=== PATIENT | female | born 1960 | race Caucasian/White ===

== ENCOUNTER → 2016-05-09 | Outpatient (CLI) | payer BC ==
[2016-05-09 13:33] LABS: BASO % 0.3 %; BASO ABS # 0.02 K/uL (0-0.2); COMPLETE YES; HEMATOCRIT 42.6 % (37-47); IG% 0.3 %; LYMPH % 16.4 %; MEAN CELL VOLUME 86.9 fL (80-100); MEAN CORPUSCULAR HEMOGLOBIN 29.2 pg (25-34); MEAN CORPUSCULAR HGB CONC 33.6 g/dl (32-36); MEAN PLATELET VOLUME 9.7 fL (7.4-10.4); MONO % 5.7 %; NEUT % 77.3 %; PLATELET COUNT 229 K/uL (130-400)
[2016-05-09 13:49] LABS: ALT/SGPT 18 U/L (12-78); BLOOD UREA NITROGEN 16 mg/dl (7-18); BUN/CREATININE RATIO 13.1 (10-20); CALCIUM 9.1 mg/dl (8.5-10.1); CARBON DIOXIDE 31 mmol/L (21-32); CHLORIDE 104 mmol/L (98-107); CHOLESTEROL 148 mg/dl (0-200); GLUCOSE 86 mg/dl (70-99); POTASSIUM 4.2 mmol/L (3.5-5.1); SODIUM 141 mmol/L (136-145); TRIGLYCERIDES 243 mg/dl (0-150); VERY LOW DENSITY LIPOPROT CALC 49 mg/dl
[2016-05-09 13:58] LABS: ALB/GLOB RATIO 1.1 (0.9-2); ALKALINE PHOSPHATASE 100 U/L (45-117); AST/SGOT 15 U/L (15-37); CHOLESTEROL/HDL RATIO 3.4; HDL CHOLESTEROL 43 mg/dl; LDL CHOLESTEROL CALCULATED 56 mg/dl
== END | disposition home or self-care (01) ==
LOC: C.LABMFLN 10:22
PROVIDERS: ATTEND Family Medicine
DX: I10 Essential (primary) hypertension (principal); E78.00 Pure hypercholesterolemia, unspecified; E03.9 Hypothyroidism, unspecified

== ENCOUNTER → 2016-08-12 | Outpatient (CLI) | payer BC ==
[2016-08-12 13:52] LABS: CHOLESTEROL/HDL RATIO 2.7; THYROID STIMULATING HORMONE 0.638 uIu/ml (0.300-4.500)
== END | disposition home or self-care (01) ==
LOC: C.LABMFLN 08:52
PROVIDERS: ATTEND Family Medicine
DX: E78.00 Pure hypercholesterolemia, unspecified (principal); E03.9 Hypothyroidism, unspecified

== ENCOUNTER → 2017-02-25 | Outpatient (CLI) | payer BC ==
[2017-02-25 17:45] LABS: URINE APPEARANCE CLEAR (CLEAR); URINE BILIRUBIN NEG (NEG); URINE COLOR YELLOW; URINE NITRITE NEG (NEG); URINE SPECIFIC GRAVITY 1.013 (1.000-1.030); UROBILINOGEN NEG (NEG)
[2017-02-25 17:46] LABS: MANUAL MICROSCOPIC REQUIRED? NO; REVIEW REQ? NO
[2017-02-25 17:50] LABS: BASO % 0.4 %; BASO ABS # 0.02 K/uL (0-0.2); COMPLETE YES; EOS % 0.2 %; HEMATOCRIT 42.1 % (37-47); IG% 0.2 %; LYMPH % 15.1 %; LYMPH ABS # 0.84 K/uL (1.2-3.4); MEAN CELL VOLUME 88.4 fL (80-100); MEAN CORPUSCULAR HEMOGLOBIN 29.6 pg (25-34); MEAN CORPUSCULAR HGB CONC 33.5 g/dl (32-36); MEAN PLATELET VOLUME 9.7 fL (7.4-10.4); MONO % 8.6 %; NEUT % 75.5 %; PLATELET COUNT 204 K/uL (130-400); RED BLOOD COUNT 4.76 M/uL (4.2-5.4); WHITE BLOOD COUNT 5.55 K/uL (4.8-10.8)
[2017-02-25 18:03] LABS: ALT/SGPT 24 U/L (12-78); AST/SGOT 18 U/L (15-37); BLOOD UREA NITROGEN 15 mg/dl (7-18); BUN/CREATININE RATIO 13.7 (10-20); CALCIUM 8.5 mg/dl (8.5-10.1); CARBON DIOXIDE 29 mmol/L (21-32); CHLORIDE 106 mmol/L (98-107); CREATININE 1.09 mg/dl (0.60-1.20); GLUCOSE 88 mg/dl (70-99); POTASSIUM 3.8 mmol/L (3.5-5.1); SODIUM 142 mmol/L (136-145)
[2017-02-25 18:15] LABS: ALB/GLOB RATIO 0.9 (0.9-2); ALKALINE PHOSPHATASE 110 U/L (45-117); CHOLESTEROL 102 mg/dl (0-200); CHOLESTEROL/HDL RATIO 2.2; HDL CHOLESTEROL 47 mg/dl; LDL CHOLESTEROL CALCULATED 25 mg/dl; THYROID STIMULATING HORMONE 0.478 uIu/ml (0.300-4.500); TRIGLYCERIDES 152 mg/dl (0-150); VERY LOW DENSITY LIPOPROT CALC 30 mg/dl
== END | disposition home or self-care (01) ==
LOC: C.LABMFLN 11:57
PROVIDERS: ATTEND Family Medicine
DX: J44.9 Chronic obstructive pulmonary disease, unspecified (principal); I10 Essential (primary) hypertension; E03.9 Hypothyroidism, unspecified; E78.00 Pure hypercholesterolemia, unspecified

== ENCOUNTER 2020-11-13 08:12 | Observation (INO) ==
--- NOTE | 2020-10-27 15:32 | PAT Medication Instructions ---
Medication Instructions Date of Service October 27, 2020 Home Medications Medication Instructions Recorded albuterol sulfate 2.5 mg CONTINUOUS NEBULIZATION Q4H 11/03/18 PRN #75 ml atorvastatin 20 mg tablet 20 mg PO HS #90 tab 05/16/20 bupropion HCl 100 mg tablet 100 mg PO BID #180 tab 09/07/20 albuterol sulfate 2.5 mg CONTINUOUS NEBULIZATION Q4H PRN atorvastatin 20 mg tablet 20 mg PO HS bupropion HCl 100 mg tablet 100 mg PO BID acetaminophen 500 mg capsule 1,000 mg PO Q6H PRN albuterol sulfate 90 mcg/actuation aerosol inhaler (ProAir HFA) 2 puff INHALATION 6XD PRN atenolol 50 mg tablet 50 mg PO QAM ibuprofen 200 mg capsule 400 mg PO Q6H PRN levothyroxine 200 mcg tablet 200 mcg PO QAM losartan 25 mg tablet 25 mg PO QAM mometasone-formoterol HFA 100 mcg-5 mcg/actuation aerosol inhaler 2 puff INHALATION QAM omeprazole 40 mg capsule,delayed release 40 mg PO BID tiotropium bromide 18 mcg capsule with inhalation device 1 cap INHALATION QAM ASK your surgeon for instructions ibuprofen 200 mg capsule 400 mg PO Q6H PRN DO NOT take the morning of surgery losartan 25 mg tablet 25 mg PO QAM Take morning of surgery With a small sip of water, OTHERWISE NOTHING TO EAT OR DRINK AFTER MIDNIGHT: albuterol sulfate 2.5 mg CONTINUOUS NEBULIZATION Q4H PRN (if needed) bupropion HCl 100 mg tablet 100 mg PO BID acetaminophen 500 mg capsule 1,000 mg PO Q6H PRN (okay to take up to 4 hours prior to surgery if needed) albuterol sulfate 90 mcg/actuation aerosol inhaler (ProAir HFA) 2 puff INHALATION 6XD PRN (if needed) atenolol 50 mg tablet 50 mg PO QAM levothyroxine 200 mcg tablet 200 mcg PO QAM mometasone-formoterol HFA 100 mcg-5 mcg/actuation aerosol inhaler 2 puff INHALATION QAM omeprazole 40 mg capsule,delayed release 40 mg PO BID tiotropium bromide 18 mcg capsule with inhalation device 1 cap INHALATION QAM Take evening before surgery albuterol sulfate 2.5 mg CONTINUOUS NEBULIZATION Q4H PRN (if needed) atorvastatin 20 mg tablet 20 mg PO HS bupropion HCl 100 mg tablet 100 mg PO BID acetaminophen 500 mg capsule 1,000 mg PO Q6H PRN (if needed) albuterol sulfate 90 mcg/actuation aerosol inhaler (ProAir HFA) 2 puff INHALATION 6XD PRN (if needed) omeprazole 40 mg capsule,delayed release 40 mg PO BID Other Notes If you have any questions please call us at [phone] or [phone] or [phone] or [phone]
--- NOTE | 2020-10-30 13:12 | Anesthesiology Consultation ---
Date of Service October 30, 2020 Assessment & Plan (1) Encounter for pre-operative examination: COVID screening: Per assessment on 10/30: Travel screen negative, no known COVID- 19 positive contacts or current COVID-19 related symptoms. Surgeon arranging preop COVID testing. Awaiting results. Chart Review Chart Review: Acceptable Risk for Surgery (pending surgeon-ordered PCP clearance) and Patient seen in Pre Admission Testing Teaching & Discussion Pre-Anesthesia Teaching/Discussion Notes: Instructed NPO after midnight before surgery,except medications with 15 cc of water. Medication instructions provided according to the PAT guidelines. History Surgery Operation Date: 11/13/20 12:25 Proposed Procedures p C4-C6 Anterior Cervical Discectomy and Fusion Possible C6-C7, Spinal Cord Monitoring - Khanh Shah DO Height/Weight Height: 5 ft 4 in Weight: 109.6 kg Allergies Allergy/AdvReac Type Severity Reaction Status Date / Time lisinopril Allergy Unknown Unknown Verified 10/26/20 15:36 oxytetracycline Allergy Unknown Hives Verified 10/26/20 15:36 [From Terramycin] Medications Home Medications Medication Instructions Recorded Confirmed Last Taken albuterol sulfate 2.5 mg CONTINUOUS NEBULIZATION Q4H 11/03/18 10/26/20 Unknown PRN #75 ml atorvastatin 20 mg tablet 20 mg PO HS #90 tab 05/16/20 10/26/20 Unknown bupropion HCl 100 mg tablet 100 mg PO BID #180 tab 09/07/20 10/26/20 Unknown acetaminophen 500 mg capsule 1,000 mg PO Q6H PRN 10/26/20 10/26/20 Unknown albuterol sulfate 90 mcg/actuation 2 puff INHALATION 6XD PRN 10/26/20 10/26/20 Unknown aerosol inhaler (ProAir HFA) atenolol 50 mg tablet 50 mg PO QAM 10/26/20 10/26/20 Unknown ibuprofen 200 mg capsule 400 mg PO Q6H PRN 10/26/20 10/26/20 Unknown levothyroxine 200 mcg tablet 200 mcg PO QAM 10/26/20 10/26/20 Unknown losartan 25 mg tablet 25 mg PO QAM 10/26/20 10/26/20 Unknown mometasone-formoterol HFA 100 2 puff INHALATION QAM 10/26/20 10/26/20 Unknown mcg-5 mcg/actuation aerosol inhaler omeprazole 40 mg capsule,delayed 40 mg PO BID 10/26/20 10/26/20 Unknown release tiotropium bromide 18 mcg capsule 1 cap INHALATION QAM 10/26/20 10/26/20 Unknown with inhalation device Past Medical History Medical History Acid reflux disease controlled Carpal tunnel syndrome Cervical spinal stenosis Chronic obstructive pulmonary disease CKD (chronic kidney disease), stage III PCP monitoring Depression Essential tremor Left hand History of IBS Hypercholesterolemia Hypertension Hypothyroidism Morbid obesity Venous insufficiency Exercise / Class Metabolic Activity III < 4 Walking/Shop/Light housework (one FS (no CP, mild SOB)) Past Family History Family History Grandmother Breast cancer Uncle Colorectal cancer Esophageal cancer Lung cancer Prostate cancer Father Heart disease Mother Skin cancer Brother Brain cancer Past Surgical History Surgical History H/O lymph node biopsy Neck (Dx cat scratch fever) History of bunionectomy History of esophagogastroduodenoscopy (EGD) S/P cholecystectomy S/P colonoscopy 08/24/20 ([facility]) S/P hysterectomy Past Anesthesia History No Hx of Anesthesia Complications (except PONV x1 (cholecystectomy)) and No Family Hx of Anesthesia Complications History of PONV No Hx of Motion Sickness and History of PONV (PONV x1 (cholecystectomy) STOP BANG Total 5 Social History Smoking Status: Never smoker Do You Dip or Chew Tobacco: No Hx Alcohol Use: No Hx Substance Use: No Review of Systems Chronic, intermittent dry cough, unchanged- felt r/t COPD. Patient denies chest pain, shortness of breath, fever, chills, wheezing, palpitations. Physical Exam Vital Signs VITALS BP 139/85 P 68 TEMP 98.6 SP02 94%RA RESP 16 PHYSICAL Significantly decreased cervical extension range of motion (r/t cervicalgia). Full TMJ range of motion. TMD 3 finger breaths Mallampati Score 2 Dentition: upper right front side tooth Lungs: clear throughout to auscultation Cardiac: regular rate and rhythm, no murmurs noted Spine: normal Carotid arteries: negative bruit Extremities: no edema Lab Results Anesthesia Preop Results Results Anesthesia Widget: WBC 7.43 K/uL (4.8-10.8) 10/30/20 Hgb 13.6 g/dL (12.0-16.0) 10/30/20 Hct 41.0 % (37-47) 10/30/20 Plt 247 K/uL (130-400) 10/30/20 Na 143 mmol/L (136-145) 10/30/20 K 4.2 mmol/L (3.5-5.1) 10/30/20 Cl 109 mmol/L (98-107) H 10/30/20 CO2 30 mmol/L (21-32) 10/30/20 BUN 15 mg/dl (7-18) 10/30/20 Creat 1.13 mg/dl (0.6-1.2) 10/30/20 Glucose Level 80 mg/dl (70-99) 10/30/20 PT 9.8 Seconds (9.0-12.0) 10/30/20 PTT 25.9 Seconds (21.0-31.0) 10/30/20 INR 1.0 (0.9-1.1) 10/30/20 Urine Color Yellow 10/30/20 Urine Appearance Clear (Clear) 10/30/20 Urine pH 5.0 (4.5-7.5) 10/30/20 Urine Specific [place] 1.010 (1.000-1.030) 10/30/20 Urine Protein Negative (Negative) 10/30/20 Urine Glucose (UA) Negative (Negative) 10/30/20 Urine Ketones Negative (Negative) 10/30/20 Urine Blood Negative (Negative) 10/30/20 Urine Nitrite Negative (Negative) 10/30/20 Urine Bilirubin Negative (Negative) 10/30/20 Urine Urobilinogen Negative (Negative) 10/30/20 Urine Leukocyte Esterase Negative (Negative) 10/30/20 Blood Type O Positive 10/30/20 Antibody Screen NEGATIVE 10/30/20 Testing Electrocardiogram Date: 10/30/20 NSR at 68bpm. unconfirmed report. Chest X-Ray Date: 10/30/20 No acute cardiopulmonary findings. Mild reticulonodular interstitial thickening. Although nonspecific, this is likely chronic.
[~2020-11-13 08:12] MED LIST: ACETAMINOPHEN 500 MG TAB PO SCH; CeleBREX 200 MG CAP PO SCH; GABAPENTIN 600 MG DOSE PO SCH; LR 15ML/HR IV SCH; ceFAZolin 2000MG 2,000 MG/15 ML SYR IV SCH
[2020-11-13] MEDS ORDERED: MEPERIDINE HCL 25 MG/ML CARP/VIAL IV PRN (09:35)
[2020-11-13] MEDS ORDERED: ONDANSETRON INJ 2 MG/ML 2 ML VIAL IV PRN ×2 (09:35→13:46)
[2020-11-13] MEDS ORDERED: ePHEDrine sulfate 50 MG/ML AMP IV PRN (09:35)
[2020-11-13] MEDS ORDERED: fentaNYL citrate 100 MCG/2 ML VIAL IV PRN (09:35)
[2020-11-13] MEDS ORDERED: LABETALOL HCL IV 5 MG/ML 20ML IV PRN (09:35)
[2020-11-13] MEDS ORDERED: HYDROmorphone INJ 1 MG/ML SYRINGE IV PRN ×2 (09:35→13:46)
[2020-11-13] MEDS ORDERED: PHENYLEPHRINE 100MCG/ML 5ML SYR IV PRN (09:35)
[2020-11-13] MEDS ORDERED: ATROPINE SULFATE 0.1 MG/ML 10ML SYR IV PRN (09:35)
--- NOTE | 2020-11-13 09:37 | History & Physical Bridge Note ---
Date of Service November 13, 2020 History & Physical Bridge Note I have examined the patient, reviewed the History & Physical and in the interval since the performance of the History & Physical I have noted the following changes of clinical significance: no changes noted
--- NOTE | 2020-11-13 09:38 | History & Physical Report ---
Date of Service November 13, 2020 Assessment & Plan (1) Cervical spinal stenosis: Plan: C4-C6 anterior cervical discectomy and fusion, possible C6-C7 History of Present Illness Chief Complaint: Neck and arm pain Primary Care Provider: Seema Juan MD This is a 52-year-old female presents with chronic persistent neck and arm pain after failing course of nonoperative care she is here for surgical invention. Allergies Allergy/AdvReac Type Severity Reaction Status Date / Time lisinopril Allergy Unknown Unknown Verified 11/13/20 08:50 oxytetracycline Allergy Unknown Hives Verified 11/13/20 08:50 [From Terramycin] Home Medications Medication Instructions Recorded Confirmed Type albuterol sulfate 2.5 mg CONTINUOUS NEBULIZATION Q4H 11/03/18 11/13/20 Rx PRN #75 ml atorvastatin 20 mg tablet 20 mg PO HS #90 tab 05/16/20 11/13/20 Rx bupropion HCl 100 mg tablet 100 mg PO BID #180 tab 09/07/20 11/13/20 Rx acetaminophen 500 mg capsule 1,000 mg PO Q6H PRN 10/26/20 11/13/20 History albuterol sulfate 90 mcg/actuation 2 puff INHALATION 6XD PRN 10/26/20 11/13/20 History aerosol inhaler (ProAir HFA) atenolol 50 mg tablet 50 mg PO QAM 10/26/20 11/13/20 History ibuprofen 200 mg capsule 400 mg PO Q6H PRN 10/26/20 11/13/20 History levothyroxine 200 mcg tablet 200 mcg PO QAM 10/26/20 11/13/20 History losartan 25 mg tablet 25 mg PO QAM 10/26/20 11/13/20 History mometasone-formoterol HFA 100 2 puff INHALATION QAM 10/26/20 11/13/20 History mcg-5 mcg/actuation aerosol inhaler omeprazole 40 mg capsule,delayed 40 mg PO BID 10/26/20 11/13/20 History release tiotropium bromide 18 mcg capsule 1 cap INHALATION QAM 10/26/20 11/13/20 History with inhalation device Past Med/Surg History Medical History Acid reflux disease controlled Carpal tunnel syndrome Cervical spinal stenosis Chronic obstructive pulmonary disease CKD (chronic kidney disease), stage III PCP monitoring Depression Essential tremor Left hand History of IBS Hypercholesterolemia Hypertension Hypothyroidism Morbid obesity Venous insufficiency Surgical History H/O lymph node biopsy Neck (Dx cat scratch fever) History of bunionectomy History of esophagogastroduodenoscopy (EGD) S/P cholecystectomy S/P colonoscopy 08/24/20 ([facility]) S/P hysterectomy Family History Grandmother Breast cancer Uncle Colorectal cancer Esophageal cancer Lung cancer Prostate cancer Father Heart disease Mother Skin cancer Brother Brain cancer Social History (Updated 10/26/20 @ 16:00 by Minnie Mckinley RN) Smoking Status: Never smoker Second Hand Exposure: Yes (SPOUSE SMOKES); Do You Dip or Chew Tobacco: No; Hx Alcohol Use: No Hx Substance Use: No Preferred Language: Azeri Communication Ability: Effective Overnight Associate Required: No Beliefs That Will Affect Care: None marital status: Current Living Situation: Spouse current occupational status: employed 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
[2020-11-13] MEDS ORDERED: MIDAZOLAM HCL 1 MG/ML 2ML VIAL ONE (09:47)
[2020-11-13] MEDS ORDERED: fentaNYL citrate 100 MCG/2 ML VIAL ONE ×3 (09:47→12:19)
[2020-11-13] MEDS ORDERED: PROPOFOL IV EMULSION 10 MG/ML 20 ML VIAL IV ONE (10:40)
[2020-11-13] MEDS ORDERED: ONDANSETRON INJ 2 MG/ML 2 ML VIAL ONE (10:40)
[2020-11-13] MEDS ORDERED: DEXAMETHASONE SOD INJ 4 MG/ML VIAL ONE (10:40)
[2020-11-13] MEDS ORDERED: LIDOCAINE 2% 2 ML VIAL/AMP(20MG/ML) INFIL ONE (10:40)
[2020-11-13] MEDS ORDERED: NEOSTIGMINE METHYLSULFATE 1 MG/ML 10ML VIAL ONE (10:41)
[2020-11-13] MEDS ORDERED: GLYCOPYRROLATE 0.2 MG/ML VIAL ONE (10:41)
[2020-11-13] MEDS ORDERED: FLOSEAL HEMOSTATIC MATRIX 10ML TOP ONE (10:41)
[2020-11-13] MEDS ORDERED: PHENYLEPHRINE 100MCG/ML 5ML SYR ONE (10:41)
[2020-11-13] MEDS ORDERED: ePHEDrine sulfate 50 MG/ML SYR ONE (10:41)
--- NOTE | 2020-11-13 11:52 | Operative Report ---
Post Operative Report Pre & Post Diagnosis Operation Date: 11/13/20 09:55 Pre-Op Diagnosis: Spinal Stenosis, Cervical Region Post-Op Diagnosis: Spinal Stenosis, Cervical Region I identified the patient and participated in the time-out.: Yes Procedure Operation Date: 11/13/20 09:55 Actual Procedures #1 anterior cervical discectomy with bilateral foraminotomies C4-5, C5-6 and C6- C7. #2 anterior cervical arthrodesis C4-5, C5-6 and C6-C7. #3 placement of 7 mm spiral cage filled with I factor at C4-C5, 8 mm at C5-C6 and 8 mm at C6 and C7. Again all filled with I factor. #4 application 5 complete and screws from C4-C7. Surgeon Khanh Shah, DO Tower Crane Operator Jessie Reid Estimated Blood Loss 20 Findings See Below The patient is 5 foot 4 weighing over 107 kg with a BMI in excess of 40. Patient body habitus did contribute to significant technical difficulty with patient positioning and exposure adding at least 25% increase to the operative time. Specimens None Indications This is a 60-year-old female presents with above-mentioned diagnosis after failing course of nonoperative care she is here for surgical invention. Description of Procedure Patient was met with identified informed consent obtained. Patient was then taken to the operative suite underwent a patient placed in supine position Santos table the head Elder head mixer. All bony prominences well-padded eyes inspected to ensure no external pressure placed upon the. This point the anterior cervical spine was prepped and draped in a sterile fashion. With the assistance of fluoroscopy and the plan to see 5 C6 disc base and a transverse incision was placed along the right anterior aspect of the cervical spinal lines region. Sharp dissection with assistance of bipolar cautery performed down to and exposing the anterior cervical spine from C4-C7. Several 10 retractors p laced. Then performed a complete discectomy of C4-C5 out to the uncovertebral's bilaterally. [place] distracting pins utilized to assist in visualization. Removed all posterior annular fibers longitudinal ligament and bilateral foraminotomies performed. Endplates were then burred to subcortically bone and a 7 mm spiral cage filled I factor tapped in position. Then proceeded to C5-C6. Again complete discectomy performed out to the uncovertebral's bilaterally. Removed all posterior annular fibers longitudinal ligament bilateral foraminotomies performed. Endplates burred to subcortically bone and an 8 mm spiral cage filled I factor tapped in position. Lastly proceeded to C6-C7. Again complete discectomy performed out to the uncovertebral's bilaterally. Including removal of all posterior fibers longitudinal ligament bilateral foraminotomies performed. Endplates burred to subcortically bone and an 8 mm spiral cage filled with I factor tapped in position. Distracting apparatus was removed all anterior osteophytes burred to a smooth cortical surface of 5 complete and screws applied with the assistance of fluoroscopy. Incision was then copiously irrigated explored to ensure no damage to surrounding structures remaining bleeding. 10 round GERALD drain inserted. The incision was then closed with 2 Vicryl in a fashion of 4 Monocryl for final skin closure. Steri-Strip sterile dressings placed. Patient waken taken to PACU stable condition. Please note spinal cord monitoring was utilized at the procedure no changes noted. Lastly Jessie Reid was present at the entire procedure involved the patient positioning complex portions of the surgery and final skin closure. I attest to the content of the Intraoperative Record and any orders documented therein. Any exceptions are noted below.
--- NOTE | 2020-11-13 12:28 | Fluoroscopy Report ---
FL cervical 2-3V HISTORY: 60 years-old Female C4-6 ACDF POSSIBLE C6-7 COMPARISON: None TECHNIQUE: 3 spot fluoroscopic images of the cervical spine were obtained utilizing 19.7 seconds fluo roscopy time FINDINGS: Anterior plate and screw fusion hardware noted at what appears to be the C4-C7 levels with associated discectomy changes. Endotracheal tube is present. Radiopaque surgical sponge is noted within the ant erior operative bed. IMPRESSION: Fluoroscopic assistance as above. ACT 112: Negative or not required by law. The above report was generated using voice recognition software. It may contain grammatical, syntax o r spelling errors. Electronically signed by: Oswaldo Malik M.D. 11/13/2020 12:27 PM
--- NOTE | 2020-11-13 13:05 | Anesthesiology Progress Note ---
Date of Service November 13, 2020 Anesthesia Post Procedure Vital Signs Vital Signs: Temp Pulse Pulse Resp BP Pulse Ox 11/13/20 13:00 80 18 149/80 H 95 11/13/20 12:50 79 18 148/80 H 93 11/13/20 12:40 76 18 136/77 94 11/13/20 12:30 73 20 148/78 H 96 11/13/20 12:20 75 20 143/82 H 97 11/13/20 12:10 36.4 C L 79 17 137/79 94 11/13/20 08:55 36.9 C 78 20 143/71 H 97 Transfer of Care Handoff Completed per policy Notes Mental Status: alert / awake / arousable Patient Amnestic to Procedure: Yes Nausea / Vomiting: adequately controlled Pain: adequately controlled Airway Patency, RR, SpO2: stable & adequate BP & HR: stable & adequate Hydration State: stable & adequate Anesthetic Complications: no major complications apparent and Pt Satisfied with anesthetic care Notes: The patient is awake and comfortable. She has some neck soreness around the surgical site but there is no neck swelling and her dressing is clear. She was told to let her nurse know immediately if she has any neck swelling or trouble breathing on the floor.
[2020-11-13] MEDS ORDERED: LORazepam 0.5 MG/1 ML VIAL IV PRN (13:46)
[2020-11-13] MEDS ORDERED: dexAMETHasone 8 MG in SYRINGE 0 ML IV PRN (13:46)
[2020-11-13] MEDS ORDERED: DO NOT ADMINISTER FLU VACCINE PRN (13:46)
[2020-11-13] MEDS ORDERED: FAMOTIDINE 20 MG TAB PO PRN (13:46)
[2020-11-13] MEDS ORDERED: NALOXONE HCL 0.4 MG/1 ML VIAL/CARP IV PRN (13:46)
[2020-11-13] MEDS ORDERED: traMADol HCL 50 MG TABLET PO PRN (13:46)
[2020-11-13] MEDS ORDERED: diphenhydrAMINE Capsule 25 MG CAP PO PRN (13:46)
[2020-11-13] MEDS ORDERED: bisacodyL 10 MG SUPP PR PRN (13:46)
[2020-11-13] MEDS ORDERED: MAGNESIUM HYDROXIDE SUSP 30 ML UDC PO PRN (13:46)
[2020-11-13] MEDS ORDERED: ALBUTEROL HFA 8 GM INHALER INH PRN (13:46)
[2020-11-13] MEDS ORDERED: ALBUTEROL 0.083% NEBU SOLN 3 ML VIAL INH PRN (13:46)
[2020-11-13] MEDS ORDERED: SOD PHOSPHATE/SOD BIPHOSPHATE ENEMA 132 ML BTL PR PRN (13:46)
[2020-11-13] MEDS ORDERED: ACETAMINOPHEN 1,000 MG/100 ML VIAL IV PRN (13:46)
[2020-11-13] MEDS ORDERED: LORazepam 0.5 MG TAB PO PRN (13:46)
[2020-11-13] MEDS ORDERED: HYDROmorphone INJ 0.5 MG/0.5 ML SYR IV PRN (13:46)
[2020-11-13] MEDS ORDERED: oxyCODONE HCL IR 5 MG TAB (IMMEDIATE RELEASE) PO PRN (13:46)
[2020-11-13] MEDS ORDERED: ALUMINUM/MAGNESIUM SUSP 30 ML UDC PO PRN (13:46)
[2020-11-13] MEDS ORDERED: PROMETHAZINE HCL 12.5 MG in SODIUM CHLORIDE 0.9% 50 ML IV PRN (13:46)
[2020-11-13] MEDS ORDERED: DO NOT ADMINISTER PNEUMOCOCCAL VACCINE PRN (13:46)
[2020-11-13] MEDS ORDERED: RACEPINEPHRINE 2.25% NEBU SOLN 0.5 ML VIAL INH PRN (13:46)
[2020-11-13] MEDS ORDERED: ACETAMINOPHEN 500 MG TAB PO PRN (13:46)
[2020-11-13] MEDS ORDERED: ONDANSETRON 4 MG OD TAB PO PRN (13:46)
[2020-11-13] MEDS ORDERED: METOCLOPRAMIDE HCL INJ 5 MG/ML 2 ML VIAL IV PRN (13:46)
[2020-11-13] MEDS ORDERED: hydrOXYzine HCl 25 MG TAB PO PRN (13:46)
[2020-11-13] MEDS: LACTATED RINGER'S 1,000 ML IV SCH ×2 (15:15→21:13)
[2020-11-13] MEDS: buPROPion HCl 100 MG TABLET PO SCH (16:25)
--- NOTE | 2020-11-13 16:33 | Consultation ---
Date of Consultation November 13, 2020 History of Present Illness Attending Physician: Khanh Shah DO Allergies Allergy/AdvReac Type Severity Reaction Status Date / Time lisinopril Allergy Unknown Unknown Verified 11/13/20 08:50 oxytetracycline Allergy Unknown Hives Verified 11/13/20 08:50 [From Terramycin] Home Medications Medication Instructions Recorded Confirmed Type albuterol sulfate 2.5 mg CONTINUOUS NEBULIZATION Q4H 11/03/18 11/13/20 Rx PRN #75 ml atorvastatin 20 mg tablet 20 mg PO HS #90 tab 05/16/20 11/13/20 Rx bupropion HCl 100 mg tablet 100 mg PO BID #180 tab 09/07/20 11/13/20 Rx acetaminophen 500 mg capsule 1,000 mg PO Q6H PRN 10/26/20 11/13/20 History albuterol sulfate 90 mcg/actuation 2 puff INHALATION 6XD PRN 10/26/20 11/13/20 History aerosol inhaler (ProAir HFA) atenolol 50 mg tablet 50 mg PO QAM 10/26/20 11/13/20 History ibuprofen 200 mg capsule 400 mg PO Q6H PRN 10/26/20 11/13/20 History levothyroxine 200 mcg tablet 200 mcg PO QAM 10/26/20 11/13/20 History losartan 25 mg tablet 25 mg PO QAM 10/26/20 11/13/20 History mometasone-formoterol HFA 100 2 puff INHALATION QAM 10/26/20 11/13/20 History mcg-5 mcg/actuation aerosol inhaler omeprazole 40 mg capsule,delayed 40 mg PO BID 10/26/20 11/13/20 History release tiotropium bromide 18 mcg capsule 1 cap INHALATION QAM 10/26/20 11/13/20 History with inhalation device oxycodone 5 mg tablet 5 mg PO Q6H PRN #20 tab 11/13/20 Rx tramadol 50 mg tablet 50 mg PO Q6H PRN #20 tab 11/13/20 Rx Patient History Medical History Acid reflux disease controlled Carpal tunnel syndrome Cervical spinal stenosis Chronic obstructive pulmonary disease CKD (chronic kidney disease), stage III PCP monitoring Depression Essential tremor Left hand History of IBS Hypercholesterolemia Hypertension Hypothyroidism Morbid obesity Venous insufficiency Surgical History H/O lymph node biopsy Neck (Dx cat scratch fever) History of bunionectomy History of esophagogastroduodenoscopy (EGD) S/P cholecystectomy S/P colonoscopy 08/24/20 ([facility]) S/P hysterectomy Family History Grandmother Breast cancer Uncle Colorectal cancer Esophageal cancer Lung cancer Prostate cancer Father Heart disease Mother Skin cancer Brother Brain cancer Social History (Updated 10/26/20 @ 16:00 by Minnie Mckinley RN) Smoking Status: Never smoker Second Hand Exposure: Yes (SPOUSE SMOKES); Do You Dip or Chew Tobacco: No; Hx Alcohol Use: No Hx Substance Use: No Preferred Language: Italian Communication Ability: Effective Manager Environmental Services Required: No Beliefs That Will Affect Care: None marital status: Current Living Situation: Spouse current occupational status: employed 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 Other Information That Helps Us Care for You: No Feels Safe at Home: Yes Safety Concerns: Feels Safe At This Time Dental Care, Regularly: No Physical Activity Frequency: Does not Exercise Seatbelt Use: always Sunscreen Use: Yes Assistive Devices: Glasses Results & Data ([facility]) Vital Signs (Past 12 Hours) Vital Signs Temp Pulse Pulse Pulse Resp BP Pulse Ox 11/13/20 16:19 36.6 C 82 15 116/69 96 11/13/20 15:18 36.5 C 80 14 116/68 96 11/13/20 15:10 84 18 96 11/13/20 14:30 36.7 C 84 16 123/73 93 11/13/20 13:50 36.3 C L 73 16 116/71 94 11/13/20 13:15 36.5 C 73 18 132/84 95 11/13/20 13:00 80 18 149/80 H 95 11/13/20 12:50 79 18 148/80 H 93 11/13/20 12:40 76 18 136/77 94 11/13/20 12:30 73 20 148/78 H 96 11/13/20 12:20 36.7 C 75 78 15 139/77 93 11/13/20 12:10 36.4 C L 79 17 137/79 94 11/13/20 08:55 36.9 C 78 20 143/71 H 97 PG Care Time/CCT Total # of Minutes Spent Total Time Spent with Patient: Total time spent is greater than 50% in coordination of care (as documented) at patient's floor/unit and/or counseling patient: Coding
--- NOTE | 2020-11-13 16:38 | Hospitalist Consultation ---
Date of Consultation November 13, 2020 Assessment & Plan (1) Cervical spinal stenosis: Patient underwent anterior approach C4 7 discectomy and fusion by Dr. Shah (2) Hypertension: Patient is maintained on atenolol 50 losartan 25 (3) Depression: The patient's depression she typically takes bupropion 100 twice daily (4) Hypothyroidism: For patient's hypothyroidism she is on 20 mcg of levothyroxine we will check a TSH in the morning (5) Hypercholesterolemia: Atorvastatin is used as an outpatient to control her dyslipidemia (6) CKD (chronic kidney disease), stage III: Chronic kidney disease stage III is stable we will watch for change in med dosing requirements (7) Chronic obstructive pulmonary disease: Stable postoperatively substitution of fluticasone Vilanterol for her outpatient inhaler, continues Umeclidinium and as needed albuterol (8) Acid reflux disease: On omeprazole as an outpatient pharmacy substitution for Protonix History of Present Illness Attending Physician: Khanh Shah, History of Present Illness Medical management consultation for patient underwent a C4-7 anterior discectomy and fusion. Patient having radicular symptoms preoperatively. Patient has multiple medical problems including hypothyroidism, hypertension, COPD, depre ssion, chronic kidney disease stage III, GERD, dyslipidemia. Patient is without complaints she improvement in her radicular symptoms she is a drain in bandage in her right anterior neck and reportedly after my visit she got nauseated Allergies Allergy/AdvReac Type Severity Reaction Status Date / Time lisinopril Allergy Unknown Unknown Verified 11/13/20 08:50 oxytetracycline Allergy Unknown Hives Verified 11/13/20 08:50 [From Terramycin] Home Medications Medication Instructions Recorded Confirmed Type albuterol sulfate 2.5 mg CONTINUOUS NEBULIZATION Q4H 11/03/18 11/13/20 Rx PRN #75 ml atorvastatin 20 mg tablet 20 mg PO HS #90 tab 05/16/20 11/13/20 Rx bupropion HCl 100 mg tablet 100 mg PO BID #180 tab 09/07/20 11/13/20 Rx acetaminophen 500 mg capsule 1,000 mg PO Q6H PRN 10/26/20 11/13/20 History albuterol sulfate 90 mcg/actuation 2 puff INHALATION 6XD PRN 10/26/20 11/13/20 History aerosol inhaler (ProAir HFA) atenolol 50 mg tablet 50 mg PO QAM 10/26/20 11/13/20 History ibuprofen 200 mg capsule 400 mg PO Q6H PRN 10/26/20 11/13/20 History levothyroxine 200 mcg tablet 200 mcg PO QAM 10/26/20 11/13/20 History losartan 25 mg tablet 25 mg PO QAM 10/26/20 11/13/20 History mometasone-formoterol HFA 100 2 puff INHALATION QAM 10/26/20 11/13/20 History mcg-5 mcg/actuation aerosol inhaler omeprazole 40 mg capsule,delayed 40 mg PO BID 10/26/20 11/13/20 History release tiotropium bromide 18 mcg capsule 1 cap INHALATION QAM 10/26/20 11/13/20 History with inhalation device oxycodone 5 mg tablet 5 mg PO Q6H PRN #20 tab 11/13/20 Rx tramadol 50 mg tablet 50 mg PO Q6H PRN #20 tab 11/13/20 Rx Patient History Medical History Acid reflux disease controlled Carpal tunnel syndrome Cervical spinal stenosis Chronic obstructive pulmonary disease CKD (chronic kidney disease), stage III PCP monitoring Depression Essential tremor Left hand History of IBS Hypercholesterolemia Hypertension Hypothyroidism Morbid obesity Venous insufficiency Surgical History H/O lymph node biopsy Neck (Dx cat scratch fever) History of bunionectomy History of esophagogastroduodenoscopy (EGD) S/P cholecystectomy S/P colonoscopy 08/24/20 ([facility]) S/P hysterectomy Family History Grandmother Breast cancer Uncle Colorectal cancer Esophageal cancer Lung cancer Prostate cancer Father Heart disease Mother Skin cancer Brother Brain cancer Social History (Updated 10/26/20 @ 16:00 by Minnie Mckinley RN) Smoking Status: Never smoker Second Hand Exposure: Yes (SPOUSE SMOKES); Do You Dip or Chew Tobacco: No; Hx Alcohol Use: No Hx Substance Use: No Preferred Language: Angolan Communication Ability: Effective Afric[employer] Studies Professor Required: No Beliefs That Will Affect Care: None marital status: Current Living Situation: Spouse current occupational status: employed current occupation: [employer] Other Information That Helps Us Care for You: No Feels Safe at Home: Yes Safety Concerns: Feels Safe At This Time Dental Care, Regularly: No Physical Activity Frequency: Does not Exercise Seatbelt Use: always Sunscreen Use: Yes Assistive Devices: Glasses Review of Systems Review of Systems: Mild distress and fatigue no headache, no visual changes no speech or swallowing issues no hoarseness of voice no chest pain, pressure or palpitations no shortness of breath, cough or wheezes no abdominal pain, she became nauseated no dysuria, hematuria or frequency no focal joint pain or swelling no back pain, CVA tenderness or radicular pain no bruising, bleeding or rashes no focal signs of weakness or numbness or altered sensation no complaints of anxiety or depression.. Physical Exam Physical Exam: The patient appeared well nourished and normally developed. Vital signs as documented. Head exam is normocephalic atraumatic Neck is with bandaged and the drain to the right side of her trachea no fluctuant tissue mass or ecchymosis noted no hoarseness of voice Lungs are clear to auscultation, no focal loss of breath sounds, no stridor Cardiac exam, Rhythm is regular.. No murmurs, rubs or gallops. Abdominal exam reveals normal bowel sounds, soft non tender, no masses Extremities are nonedematous and both pedal pulses are present Neurologic exam is alert and oriented, no focal loss of strength or sensation Skin is without bruises or rashes Psychologically is without concerns for anxiety or depression Results & Data Results & Data ([facility]) Vital Signs (Past 12 Hours) Vital Signs Temp Pulse Pulse Pulse Resp BP Pulse Ox 11/13/20 16:19 97.9 F 82 15 116/69 96 11/13/20 15:18 97.7 F 80 14 116/68 96 11/13/20 15:10 84 18 96 11/13/20 14:30 98.1 F 84 16 123/73 93 11/13/20 13:50 97.3 F L 73 16 116/71 94 11/13/20 13:15 97.7 F 73 18 132/84 95 11/13/20 13:00 80 18 149/80 H 95 11/13/20 12:50 79 18 148/80 H 93 11/13/20 12:40 76 18 136/77 94 11/13/20 12:30 73 20 148/78 H 96 11/13/20 12:20 98.1 F 75 78 15 139/77 93 11/13/20 12:10 97.5 F L 79 17 137/79 94 11/13/20 08:55 98.4 F 78 20 143/71 H 97 PG Care Time/CCT Total # of Minutes Spent Total Time Spent with Patient: Total time spent is greater than 50% in coordination of care (as documented) at patient's floor/unit and/or counseling patient: Coding Level of Care Code 40773 Inpt Consult Level 3 Diagnoses Cervical spinal stenosis M48.02 Hypertension I10 Depression F32.9 Hypothyroidism E03.9 Hypercholesterolemia E78.00 CKD (chronic kidney disease), stage III N18.3 Chronic obstructive pulmonary disease J44.9 Acid reflux disease K21.9
[2020-11-13] MEDS: ceFAZolin 2000MG 2,000 MG/15 ML SYR IV SCH (18:13)
[2020-11-13] MEDS: PANTOprazole 40 MG TAB PO SCH (20:24)
[2020-11-13] MEDS ORDERED: ATORVASTATIN 20 MG TAB PO SCH (21:00)
[2020-11-13] MEDS ORDERED: DOCUSATE SODIUM/SENNA 50/8.6MG TAB PO SCH (21:00)
[2020-11-14] MEDS: ceFAZolin 2000MG 2,000 MG/15 ML SYR IV SCH (02:02)
[2020-11-14] MEDS: POLYETHYLENE (MIRALAX) 17 GM PACK PO SCH ×2 (04:13→11:17)
[2020-11-14] MEDS: LACTATED RINGER'S 1,000 ML IV SCH (04:21)
[2020-11-14] MEDS ORDERED: LEVOTHYROXINE SODIUM 200 MCG TABLET PO SCH (06:30)
--- NOTE | 2020-11-14 08:30 | Discharge Summary ---
Date of Service November 14, 2020 Admission HPI Per Admitting Provider This is a 52-year-old female presents with chronic persistent neck and arm pain after failing course of nonoperative care she is here for surgical invention. Principal Diagnosis Cervical spinal stenosis with radiculopathy Discharge Data Allergies Allergy/AdvReac Type Severity Reaction Status Date / Time lisinopril Allergy Unknown Unknown Verified 11/13/20 08:50 oxytetracycline Allergy Unknown Hives Verified 11/13/20 08:50 [From Terramycin] Consultations 11/13/20 14:32 Consult Hospitalist Routine Procedures Performed Operation Date: 11/13/20 09:55 Actual Procedures p C4-C7 Anterior Cervical Discectomy and Fusion, Spinal Cord Monitoring(Not Applicable) - Khanh Shah DO Ordered Studies 11/13/20 09:55 FL cervical 2-3V Routine Hospital Course (1) Cervical spinal stenosis: Patient went anterior cervical discectomy and fusion tolerated this well was taken to orthopedic for postop labor postop day 1 she was swallowing well no hoarseness. Excellent strength testing. GERALD drain decreasing probably. Subsequently discharged home. Discharge orders and instructions found the chart for further review. Total Time Total Time Spent Total Time Spent (In Minutes): 20 minutes Discharge Plan Discharge Items Patient Disposition: Home - Self-Care Reason For Visit: Spinal Stenosis, Cervical Region Discharge Diagnosis: Cervical spinal stenosis with radiculopathy Activity: As commented below Non-emergency contact: Primary Care Provider Call non-emergency contact if: you have any medication questions Follow-up/Referrals: Seema Juan MD [Primary Care Provider] - Diet: Regular Addtl Attending Provider Instructions: ACTIVITY RECOMMENDATIONS: SELF CARE INSTRUCTIONS AFTER CERVICAL FUSIONS 1. No smoking. Smoking drastically decreases the chance of a solid fusion. 2. No bending, lifting more than 5 pounds, or twisting (roll like a log when turning in bed). 3. You may shower 3 days after surgery. Thoroughly dry wound. Do not soak in the tub. 4. Cervical collar: Must be worn at all times including sleeping. You may remove the brace only to bath, eat and if you are sitting in a recliner. 5. Please walk as much as you can for exercise. Gradually increase the distance that you walk as your endurance increases. SPECIAL CARE INSTRUCTIONS: VERY IMPORTANT TO READ AND REVIEW A. Do not take any anti-inflammatory medications (i.e. Indocin, Advil, Aspirin, Naprosyn, Aleve, Motrin, etc.) as these may inhibit the chance of a solid fusion. Tylenol is okay to take. B. Your surgical incision has been closed with a cosmetic suture under the skin that will dissolve in about 6 weeks. In 14 days, you can use a pair of clean scissors and cut the suture that is left outside of the skin at the ends of your incision. C. Complications are uncommon, but please contact us if you have any signs or symptoms of: 1. wound infection (fever higher than 102.5 degrees F, redness, separation of wound, drainage, or increasing pain from the incision) 2. blood clots in legs (pain, swelling, redness and warmth in legs) 3. urinary tract infection (fever higher than 102.5 degrees, burning upon urination or increased frequency of urination) 4. nerve problems (inability to walk on your toes or heels, numbness, loss of bowel or bladder control) 5. any other symptoms that concern you. D. Please call the office at if you have any concerns or questions about your operation or recovery. MANAGING PAIN AFTER SPINAL SURGERY 1. Narcotic medication is intended for short-term use and will be provided for surgical pain. Surgical pain usually lasts for a period of 4-6 weeks. Narcotic medication includes Percocet, Vicodin, Darvocet, Tylenol #3 or Lortab. 2. Longer-term pain is more appropriately treated with non-narcotic medication such as Tylenol ES. 3. Muscle spasm is not appropriately treated with narcotics. Muscle relaxers such as Soma, Flexeril or Skelaxin can be used along with Tylenol ES. 4. Remember that we all live with some "aches and pains". This is not unusual or uncommon after an injury or as we get older. 5. We will provide appropriate medication within the normal guidelines of their prescribed use. We will also be very cautious and aware of potential abuse and extended duration of patients' medication needs. 6. Please allow 2-3 days to process refills. Prescriptions will not be mailed but must be picked up at the office. FOLLOW UP VISIT: Keep your scheduled follow-up appointment. Any questions, please call the office at . Pending Studies at Discharge: No Stand-Alone Forms: [facility], Smoking Cessation Medications and DC Order Prescriptions: New tramadol 50 mg tablet 50 mg PO Q6H PRN (Reason: pain, moderate) Qty: 20 RF: 0 oxycodone 5 mg tablet 5 mg PO Q6H PRN (Reason: pain, severe) Qty: 20 RF: 0 Continued atorvastatin 20 mg tablet 20 mg PO HS Qty: 90 RF: 3 albuterol sulfate 2.5 mg /3 mL (0.083 %) solution for nebulization 2.5 mg continuous nebulization Q4H PRN (Reason: shortness of breath or wheezing) Qty: 75 RF: 5 bupropion HCl 100 mg tablet 100 mg PO BID Qty: 180 RF: 3 omeprazole 40 mg capsule,delayed release(DR/EC) 40 mg PO BID RF: 0 losartan 25 mg tablet 25 mg PO QAM RF: 0 levothyroxine 200 mcg tablet 200 mcg PO QAM RF: 0 atenolol 50 mg tablet 50 mg PO QAM RF: 0 tiotropium bromide 18 mcg capsule, w/inhalation device 1 cap inhalation QAM RF: 0 mometasone-formoterol 100-5 mcg/actuation HFA aerosol inhaler 2 puff inhalation QAM RF: 0 albuterol sulfate [ProAir HFA] 90 mcg/actuation Hfa Aerosol Inhaler 2 puff INHALATION 6XD PRN (Reason: Wheezing) RF: 0 ibuprofen 200 mg Capsule 400 mg PO Q6H PRN (Reason: Pain) RF: 0 Discontinued acetaminophen [Tylenol Extra Strength] 500 mg Capsule 1,000 mg PO Q6H PRN (Reason: Pain) RF: 0 Discharge Orders: Discharge Order (Routine); Ordered 11/14/20 Ordered By: Khanh Shah Admission Data Admit Date/Time: 11/13/20 11:57 Attending Provider: Khanh Shah Admit Provider: Khanh Shah Primary Care Provider: Seema Juan Other Providers: Cristiano Carlin
[2020-11-14] MEDS: buPROPion HCl 100 MG TABLET PO SCH (08:33)
[2020-11-14] MEDS: PANTOprazole 40 MG TAB PO SCH (08:34)
[2020-11-14] MEDS ORDERED: ATENOLOL 50 MG TABLET PO SCH (09:00)
[2020-11-14] MEDS ORDERED: dexAMETHasone 8 MG in SYRINGE 0 ML IV SCH (09:00)
[2020-11-14] MEDS ORDERED: LOSARTAN POTASSIUM 25 MG TAB PO SCH (09:00)
[2020-11-14] MEDS ORDERED: FLUTICASONE/VILANTEROL 100/25MCG 14 PUFFS/INHALER INH SCH (09:00)
[2020-11-14] MEDS ORDERED: UMECLIDINIUM BROMIDE 62.5MCG/BLISTER 7 PUFFS/INHALER INH SCH (09:00)
== END 2020-11-14 16:02 | disposition home or self-care (01) ==
LOC: ASU 08:12 → 3E 11:57 → INTOOBSV 11:57